=== PATIENT | female | born 1980 | race Caucasian/White ===

== ENCOUNTER 2020-10-19 09:10 | Emergency (ER) | payer OTHER ==
[~2020-10-19] VITALS: Ht 160 cm; Wt 74.8 kg
[2020-10-19 09:19] VITALS: BP 127/64
--- NOTE | 2020-10-19 09:24 | NUR ---
BIBA FROM HOME C/O VAGINAL BLEEDING , LOWER ABD PAIN, LOWER BACK PAIN X TODAY. 8 WEEKS . LMP 08/04/20. US 3 DAYS AGO; NO HEART BEAT. PMH: ANEMIA
--- NOTE | 2020-10-19 09:28 | NUR ---
PT PROVIDED WITH URINE CUP AND AMBULATED TO RESTROOM. GAIT STEADY
--- NOTE | 2020-10-19 09:40 | NUR ---
DR. HUYNH BEDSIDE EVALUATING PT
--- NOTE | 2020-10-19 09:44 | NUR ---
URINE AND BLOOD WORK COLLECTED BEDSIDE AND WALKED OVER TO LAB
--- NOTE | 2020-10-19 09:58 | NUR ---
US BEDSIDE WITH PT
[2020-10-19 10:17] LABS: BASOPHILS % (AUTO) 0.4 % (0.0-2.0); EOSINOPHILS # (AUTO) 0.1 K/uL (0-0.4); EOSINOPHILS % (AUTO) 1.1 % (0.0-4.0); HEMATOCRIT 40.5 % (36-48); HEMOGLOBIN 13.4 g/dL (12.0-16.0); LYMPHOCYTES # (AUTO) 1.8 K/uL (2.5-16.5); LYMPHOCYTES % (AUTO) 18.1 % (20.5-51.1); MEAN CORPUSCULAR HEMOGLOBIN 29 pg (27-31); MEAN CORPUSCULAR HGB CONC 33 g/dL (33-37); MEAN CORPUSCULAR VOLUME 86.3 fL (80-94); MONOCYTES # (AUTO) 0.4 K/uL (0.8-1.0); MONOCYTES % (AUTO) 4.6 % (1.7-9.3); NEUTROPHILS # (AUTO) 7.4 K/uL (1.8-7.7); NEUTROPHILS % (AUTO) 75.8 % (42.2-75.2); PLATELET COUNT (AUTO) 346 K/uL (140-450); RED CELL DISTRIBUTION WIDTH 14.3 % (11.6-13.7); WHITE BLOOD COUNT (AUTO) 9.8 K/uL (4.8-10.8)
[2020-10-19 10:35] LABS: APPEARANCE,URINE CLOUDY (CLEAR); BILIRUBIN,URINE 3+ (NEGATIVE); BLOOD, URINE 3+ (NEGATIVE); COLOR,URINE BROWN (YELLOW); NITRITE, URINE POSITIVE (NEGATIVE); PH,URINE 6.5 (5.0-9.0); UGLUCOSE NEGATIVE (NEGATIVE)
[2020-10-19 10:41] LABS: RBC,URINE TOO NUMEROUS TO COUN /HPF (0-5); WBC,URINE 0-5 /HPF (0-5)
[2020-10-19 10:42] LABS: LEUKOCYTE ESTERASE ,URINE 1+ (NEGATIVE)
[2020-10-19] MEDS ORDERED: NITR100C7 PO (11:11)
[2020-10-19 11:50] VITALS: BP 104/68
== END 2020-10-19 11:50 | disposition home or self-care (01) ==
LOC: MED 09:10
DX: O03.9 Complete or unspecified spontaneous abortion without complication (principal); O23.41 Unspecified infection of urinary tract in pregnancy, first trimester; Z3A.08 8 weeks gestation of pregnancy; Z79.2 Long term (current) use of antibiotics
CPT/HCPCS: 36415; 76817; 81001; 84702; 85025; 86900; 86901; 87086; 99284; Q0092